=== PATIENT | male | born 1995 | race Caucasian/White ===

== ENCOUNTER 2016-07-07 10:05 | Emergency (ER) | payer OTHER ==
[~2016-07-07] VITALS: Ht 170.2 cm; Wt 71.9 kg
[2016-07-07 10:09] VITALS: Ht 170.2 cm; Wt 71.9 kg
--- NOTE | 2016-07-07 10:53 | DIAGNOSTIC IMAGING REPORT ---
RIGHT WRIST MIN 3 VIEWS ROUTINE CLINICAL HISTORY: Right wrist pain and decreased range of motion. COMPARISON: None FINDINGS: Alignment of the right wrist is anatomic. No fracture or suspicious lesion. No erosions are identified. Joint spaces are preserved. IMPRESSION: No acute fracture or dislocation of the right wrist. Electronically signed by: Dwaine Dumont M.D. 07/07/2016 10:51 AM Dictated Date/Time: 07/07/2016 10:48 AM
[2016-07-07 11:37] VITALS: BP 130/73; PULSE 61; TEMP 36.6; O2SAT 98
--- NOTE | 2016-07-07 17:28 | EMERGENCY ROOM VISIT NOTE ---
History First contact with patient: 10:26 Chief Complaint: WRIST PAIN Stated Complaint: LIMITED WRIST MOVEMENT, WRIST PAIN History of Present Illness The patient is a 20 year old male who presents to the Emergency Room with complaints of right wrist pain. The patient reports that he has had discomfort since performing presses at the gym last Thursday. He reports persistent pain along the ulnar aspect of the wrist. He denies any pain extending into the hand or fingers, forearm or elbow. The patient rates his discomfort a 5 out of 10. The patient is [id number]. Review of Systems 10 system review was performed and was negative except for pertinent positives and negatives as indicated in history of present illness Past Medical/Surgical History Medical Problems: (1) Asthma (2) Bronchitis (3) Seasonal allergies Surgical Problems: (1) History of dental surgery Family History FH: hypertension Social History Smoking Status: Never Smoker Alcohol Use: occasionally Marital Status: single Housing Status: lives with roommate Occupation Status: employed, [employer] student Current/Historical Medications No Active Prescriptions or Reported Meds Allergies Coded Allergies: No Known Allergies (Unverified , 07/07/16) Physical Exam Vital Signs Date Time Temp Pulse Resp B/P Pulse Ox O2 Delivery O2 Flow Rate FiO2 07/07/16 11:37 36.6 61 18 130/73 98 07/07/16 10:09 36.6 71 18 130/73 97 Room Air Physical Exam CONSTITUTIONAL: Healthy and well nourished. Alert and oriented X 3 with positive affect. Patient does not appear in any acute distress. HEENT: Normocephalic, atraumatic. Pupils equal, round and reactive. NECK: Full active range of motion without discomfort. MUSCULOSKELETAL: Examination of the right wrist does not show any obvious edema or ecchymosis. He is tender over the ulnar styloid. Negative anatomic snuffbox tenderness. Pronation and supination does not worsen his discomfort. Capillary refill is less than 2 seconds. INTEGUMENTARY: No rash or other significant dermatologic conditions noted. NEUROLOGIC: No focal neurologic deficits noted. Right hand and fingers are sensory intact. Medical Decision & Procedures ER Provider Diagnostic Interpretation: My interpretation of right wrist x-rays does not show any acute fractures or dislocations. Radiologist report is as follows: RIGHT WRIST MIN 3 VIEWS ROUTINE CLINICAL HISTORY: Right wrist pain and decreased range of motion. COMPARISON: None FINDINGS: Alignment of the right wrist is anatomic. No fracture or suspicious lesion. No erosions are identified. Joint spaces are preserved. IMPRESSION: No acute fracture or dislocation of the right wrist. ED Course Patient history and physical exam were performed. Nurse's notes were reviewed. The patient declined any analgesics while in the emergency department. X- rays of the right wrist were normal. A wrist lacer was dispensed, and the patient was encouraged to wear it only as needed for immediate pain relief. He was otherwise instructed to perform range of motion exercises to prevent stiffness. He was instructed to refrain from weight lifting until all symptoms completely resolved. Ice and elevation for swelling. Ibuprofen or Tylenol as needed for pain. Follow-up with orthopedics if symptoms are not improving within the next 5-7 days. The patient was happy with plan care, voiced understanding of all discharge instructions, and denied any significant pain at the time of discharge. Medical Decision Impression Primary Impression: Right wrist injury Departure Information Prescriptions No Active Prescriptions or Reported Meds Referrals No Doctor, Assigned (PCP) Patient Instructions [facility] Problem Qualifiers Primary Impression: Right wrist injury Encounter type: initial encounter Qualified Codes: S69.91XA - Unspecified injury of right wrist, hand and finger(s), initial encounter
== END 2016-07-07 11:40 | disposition home or self-care (01) ==
LOC: C.EDB 10:06 → C.EDC 11:40
DX: S69.91XA Unspecified injury of right wrist, hand and finger(s), initial encounter (principal); X58.XXXA Exposure to other specified factors, initial encounter; Y93.B3 Activity, free weights; Y99.8 Other external cause status; Y92.89 Other specified places as the place of occurrence of the external cause; J45.909 Unspecified asthma, uncomplicated; Z98.818 Other dental procedure status; Z82.49 Family history of ischemic heart disease and other diseases of the circulatory system